=== PATIENT | female | born 1965 | race Caucasian/White ===

== ENCOUNTER → 2018-01-21 | Outpatient (CLI) | payer OTHER ==
--- NOTE | 2018-01-23 10:49 | MM ---
Reason for exam: screening (asymptomatic). Last mammogram was performed 3 years and 8 months ago. History: Patient is nulliparous. Family history of breast cancer in 2 cousins. Benign US breast aspiration ea add LT of the left breast, June 07, 2014. Benign US breast aspiration single LT of the left breast, June 07, 2014. Benign US breast aspiration single RT of the right breast, June 07, 2014. Benign US right core biopsy of the right breast, June 06, 2006. Took hormonal contraceptives for 12 years. Physical Findings: A clinical breast exam by your physician is recommended on an annual basis and results should be correlated with mammographic findings. MG 3D Screening Mammo W/Cad Bilateral CC and MLO view(s) were taken. Prior study comparison: May 31, 2014, bilateral MG diagnostic mammo w CAD SANIYA. May 20, 2006, workup right diagnostic mammogram. The breast tissue is heterogeneously dense. This may lower the sensitivity of mammography. There are three rounded circumscribed densities in the left breast, increased in size. Ultrasound recommended. This finding is changed when compared with previous exams. ASSESSMENT: Incomplete: need additional imaging evaluation, BI-RAD 0 RECOMMENDATION: Ultrasound of the left breast. [facility] will attempt to contact patient to return for ultrasound.
== END | disposition home or self-care (01) ==
LOC: RADMAMWWP 07:43
PROVIDERS: ATTEND Family Medicine
DX: Z12.31 Encounter for screening mammogram for malignant neoplasm of breast (principal)
CPT/HCPCS: 77063; 77067

== ENCOUNTER → 2018-01-27 | Outpatient (CLI) | payer OTHER ==
--- NOTE | 2018-01-27 09:03 | USB ---
Reason for exam: additional evaluation requested from abnormal screening. History: Patient is nulliparous. Family history of breast cancer in 2 cousins. Benign US breast aspiration ea add LT of the left breast, June 07, 2014. Benign US breast aspiration single LT of the left breast, June 07, 2014. Benign US breast aspiration single RT of the right breast, June 07, 2014. Benign US right core biopsy of the right breast, June 06, 2006. Took hormonal contraceptives for 12 years. Physical Findings: Nurse Summary: 3cm movable nodule in the right breast and a 3cm movable nodule in the left breast (nurse dw). US Breast Workup Limited LT Left breast ultrasound demonstrates several cystic lesions measuring 2.1 x 1.0 x 2.7cm at 12 o'clock, 0.9 x 0.8 x 1.6cm at 12 o'clock, 1.1 x 0.9 x 0.8cm at 12 o'clock and 1.8 x 1.3 x 2.0cm at 1 o'clock. Anechoic with increase through transmission. These results were verbally communicated with the patient and result sheet given to the patient on 01/27/18. ASSESSMENT: Benign, BI-RAD 2 RECOMMENDATION: Return to routine screening mammogram schedule for both breasts.
== END | disposition home or self-care (01) ==
LOC: RADUSWWP 07:45
PROVIDERS: ATTEND Family Medicine
DX: R92.8 Other abnormal and inconclusive findings on diagnostic imaging of breast (principal)

== ENCOUNTER → 2021-04-20 | Outpatient (CLI) | payer OTHER ==
--- NOTE | 2021-04-26 11:19 | MM ---
Reason for exam: screening (asymptomatic). Last mammogram was performed 3 years and 3 months ago. History: Patient is postmenopausal and is nulliparous. Family history of breast cancer in 2 cousins. Benign US breast aspiration ea add LT of the left breast, June 07, 2014. Benign US breast aspiration single LT of the left breast, June 07, 2014. Benign US breast aspiration single RT of the right breast, June 07, 2014. Benign US right core biopsy of the right breast, June 06, 2006. Took hormonal contraceptives for 12 years. Physical Findings: A clinical breast exam by your physician is recommended on an annual basis and results should be correlated with mammographic findings. MG 3D Screening Mammo W/Cad Bilateral CC and MLO view(s) were taken. XCCL view(s) were taken of the right breast. Prior study comparison: January 21, 2018, bilateral MG 3d screening mammo w/cad. May 31, 2014, bilateral MG diagnostic mammo w CAD SANIYA. There are scattered fibroglandular densities. Previous mammotome biopsy in the right breast. Most of the previous nodules have resolved. A nodule remaining in the right upper outer quadrant appears more prominent. Large region of calcifications just adjacent. Additional microcalcifications 2-3 o'clock left breast. ASSESSMENT: Incomplete: need additional imaging evaluation, BI-RAD 0 RECOMMENDATION: Special view mammogram of both breasts. If lesion persists on supplemental views, image directed ultrasound is recommended. [facility] will attempt to contact patient to return for supplemental views and ultrasound if indicated.
== END | disposition home or self-care (01) ==
LOC: RADMAMWWP 09:22
PROVIDERS: ATTEND Family Medicine
DX: Z12.31 Encounter for screening mammogram for malignant neoplasm of breast (principal); Z78.0 Asymptomatic menopausal state; Z80.3 Family history of malignant neoplasm of breast
CPT/HCPCS: 77063; 77067

== ENCOUNTER → 2021-05-02 | Outpatient (CLI) | payer OTHER ==
--- NOTE | 2021-05-02 08:48 | USB ---
EXAMINATION TYPE: US breast limited RT DATE OF EXAM: 05/02/2021 COMPARISON: 01/27/2018, 06/07/2014 CLINICAL HISTORY: R92.8 abnormal mammogram. Findings: The right breast was scanned with ultrasound from 9-12 o'clock and in the retroareolar region and axi llary tail. In the right breast at 10:00, there is a 1.4 x 1.0 x 1.0 cm irregular ovoid lesion which may represen t a complex cystic lesion and aspiration is recommended. If aspiration is unsuccessful, ultrasound-gu ided biopsy is recommended. A presumed complicated cyst in the right breast at 10:00 measures up to 0.5 x 0.4 x 0.5 cm. IMPRESSION: Ultrasound-guided aspiration is recommended for the 1.4 cm lesion in the right breast at 10:00 and if unsuccessful ultrasound-guided biopsy is recommended. Bilateral stereotactic biopsies are recommended for extensive bilateral right breast calcifications w hich are new since prior screening mammogram. BI-RADS 4, suspicious.
--- NOTE | 2021-05-02 10:41 | MM ---
Reason for exam: additional evaluation requested from abnormal screening. Last mammogram was performed less than 1 month ago. History: Patient is postmenopausal and is nulliparous. Family history of breast cancer in 2 cousins. Benign US breast aspiration ea add LT of the left breast, June 07, 2014. Benign US breast aspiration single LT of the left breast, June 07, 2014. Benign US breast aspiration single RT of the right breast, June 07, 2014. Benign US right core biopsy of the right breast, June 06, 2006. Took hormonal contraceptives for 12 years. Physical Findings: Nurse did not find any significant physical abnormalities on exam. MG 3D Work Up W/Cad SANIYA Bilateral CC and MLO view(s) were taken. Prior study comparison: April 20, 2021, bilateral MG 3d screening mammo w/cad. January 21, 2018, bilateral MG 3d screening mammo w/cad. There are scattered fibroglandular densities. There is a 6.2 x 8.1 x 7.7cm area of multiple groupings of fine heterogeneous calcifications in the upper outer right breast but also extending into lower and inner breast. The area contains a mass with biopsy clip and ultrasound is recommended. There is a 5.0 x 6.8 x 4.0cm area of multiple groupings of fine heterogeneous calcifications in the upper outer left breast but also extending into the inferior breast. These results were verbally communicated with the patient and result sheet given to the patient on 05/02/21. ASSESSMENT: Incomplete: need additional imaging evaluation, BI-RAD 0 RECOMMENDATION: Ultrasound of the right breast. (for mass) MTDD
== END ==
LOC: RADMAMWWP 07:40
PROVIDERS: ATTEND Family Medicine
DX: N64.9 Disorder of breast, unspecified (principal); R92.1 Mammographic calcification found on diagnostic imaging of breast; R92.8 Other abnormal and inconclusive findings on diagnostic imaging of breast; Z80.3 Family history of malignant neoplasm of breast
CPT/HCPCS: 77066; 76642; G0279; 77062

== ENCOUNTER → 2021-06-02 | Outpatient (CLI) | payer MEDICAID ==
[2021-06-02 07:32] VITALS: BP 126/77; PULSE 59; RESP 18; TEMP 97.8
--- NOTE | 2021-06-02 08:12 | P.GSHP ---
History of Present Illness H&P Date: 06/02/21 Chief Complaint: Bilateral mammographic abnormality Vicky is a 56-year-old white female seen in consultation for Dr. Nielsen regarding bilateral mammographic abnormality. She underwent a bilateral screening mammogram in . This led to additional views of both breasts which was performed on 04/2221. On the additional views there was noted to be a 6.2 x 8.1 cm area of multiple groupings of fine heterogeneous calcifications in the upper outer quadrant of the right breast. The area also contained a mass with the biopsy clip and ultrasound was recommended. The ultrasound of the right breast revealed a 1.4 x 1 cm irregular over the lesion which was felt to possibly represent a complex cyst and aspiration was recommended. The patient additionally in the left breast was noted to have a 5 x 6.8 cm area of fine heterogeneous calcifications in the upper outer quadrant. Stereotactic core biopsies of the area of calcifications of both breasts was recommended. The patient experienced an infection in the left breast at approximately the age of 13. The nipple has been slightly inverted on this side sent she was 13. This has not changed. The patient does not feel any lumps masses or nodules in her breasts for which she is concerned. She is not complaining of any nipple discharge or skin changes. She is not complaining of any pain in her breast. Of significance is the fact that in 2013 she underwent cyst aspiration of the left and right breast all of which were benign. She has never had any open breast biopsies. Caffiene: 1 cup/day nicotine: none; second hand smoke growing up chocolate: none Family history: father: colon and lung cancer mother: ? type of cancer cousin: 3 of 4 had breast cancer (earliest in her 20's, she ) no genetic testing maternal uncle: 2 lung cancer 3 brothers: of lung cancer all smokers Hormonal history: Menarche: 11 G0 menopause: 52 BCP: 12 years hormones: none Surgical history: Negative Medical history: High cholesterol Social history: Nicotine: Negative Alcohol: Negative Drugs: Occasional marijuana - Constitutional Constitutional: Denies chills, Denies fever - EENT Eyes: denies blurred vision, denies pain Ears: bilateral: tinnitus, deny: decreased hearing Ears, nose, mouth and throat: Denies headache, Denies sore throat - Breasts Breasts: bilateral: as per HPI - Cardiovascular Cardiovascular: Denies chest pain, Denies shortness of breath - Respiratory Respiratory: Denies cough, Denies 7 - Gastrointestinal Gastrointestinal: Denies abdominal pain, Denies diarrhea, Denies nausea, Denies vomiting - Genitourinary (Female) Genitourinary: Reports kidney stones, Denies dysuria, Denies hematuria - Menstruation Menstruation: Reports postmenopausal - Musculoskeletal Musculoskeletal: Denies myalgias - Integumentary Integumentary: Denies pruritus, Denies rash - Neurological Neurological: Denies numbness, Denies weakness - Psychiatric Psychiatric: Denies anxiety, Denies depression - Endocrine Endocrine: Denies fatigue, Denies weight change - Hematologic/Lymphatic Comment: bruise easy - Allergic/Immunologic Allergic/Immunologic: Reports seasonal allergies Past Medical History Past Medical History: Hyperlipidemia History of Any Multi-Drug Resistant Organisms: None Reported Additional Past Surgical History / Comment(s): benign breast needle bx, colonoscopy Past Anesthesia/Blood Transfusion Reactions: No Reported Reaction Past Psychological History: No Psychological Hx Reported Smoking Status: Never smoker Past Alcohol Use History: None Reported Past Drug Use History: Marijuana Medications and Allergies Home Medications Medication Instructions Recorded Confirmed Type Rosuvastatin [Crestor] 1 tab PO DAILY 05/19/21 06/02/21 History Allergies Allergy/AdvReac Type Severity Reaction Status Date / Time Penicillins Allergy Rash/Hives Verified 06/02/21 07:27 Sulfa (Sulfonamide Allergy Rash/Hives Verified 06/02/21 07:27 Antibiotics) Surgical - Exam Vital Signs Temp Pulse Resp BP Pulse Ox 97.8 F 59 L 18 126/77 99 06/02/21 07:28 06/02/21 07:28 06/02/21 07:28 06/02/21 07:28 06/02/21 07:28 BMI 26.1 - General no distress - Eyes normal ocular movement - ENT normal nares - Neck no masses, trachea midline - Respiratory normal respiratory effort, clear to auscultation - Cardiovascular Rhythm: regular Heart Sounds: normal: S1, S2 - Abdomen Abdomen: soft, non tender, no guarding, no rigid, no rebound - Integumentary normal turgor - Neurologic no disoriented, no combative - Musculoskeletal normal gait, normal posture - Psychiatric oriented to time, oriented to person, oriented to place, speech is normal, memory intact Breast Exam: Bra: 36D inspection: Bilateral grade 3 ptosis, left nipple slightly inverted of her right nipple, right breast slightly larger than left Palpation: Right breast: Multi-positional exam fibrocystic changes, no dominant masses or nodules of concern Right axilla: No adenopathy of concern Left breast: Left nipple slightly inverted, left breast slightly smaller than right breast, multi-positional exam fibrocystic changes no discrete dominant masses or nodules of concern Left axilla: No adenopathy of concern Results Mammogram reviewed with radiology Dr. Condon. Assessment and Plan Assessment: Impression: 1. Fibroid cystic breast disease 2. Bilateral mammographic and right breast ultrasound abnormality 3. Strong family history of breast cancer and cousins 4. Asymmetry of the breast with chronically inverted left nipple Plan: 1. Bilateral stereotactic core biopsies 2. Right breast ultrasound core biopsy 3. Consider genetic testing Cc: Dr. Nielsen Risks and benefits of stereotactic core biopsy and ultrasound-guided biopsy discussed with the patient. This include but are not limited to bleeding, infection, reaction to the anesthetic. Additionally the possibility that the area intended to be sampled would be missed in the lesion would be discordant is discussed which could necessitate need for open biopsy in the future. Patient understands and wishes to proceed. Alternative such as watchful waiting or open biopsy are discussed but not recommended.
== END ==
LOC: WWCWWP 07:10
PROVIDERS: ATTEND Surgery
DX: N60.11 Diffuse cystic mastopathy of right breast (principal); N64.89 Other specified disorders of breast; E78.5 Hyperlipidemia, unspecified; Z88.0 Allergy status to penicillin; Z88.2 Allergy status to sulfonamides; Z80.1 Family history of malignant neoplasm of trachea, bronchus and lung

== ENCOUNTER → 2021-06-02 | Day surgery (SDC) | payer MEDICAID, OTHER ==
[2021-06-02 07:24] VITALS: RESP 16
[2021-06-02 10:15] VITALS: BP 128/79; PULSE 54; TEMP 98.2
--- NOTE | 2021-06-02 12:18 | P.OP ---
Date of Procedure: 06/02/21 Preoperative Diagnosis: Bilateral mammographic abnormalities microcalcifications Postoperative Diagnosis: Same Procedure(s) Performed: Bilateral stereotactic core breast biopsy Anesthesia: local Surgeon: Carolyn Garcia Pathology: other (Breast tissue bilateral) Condition: stable Disposition: same day Indications for Procedure: Abnormal microcalcifications both breast Operative Findings: Fibrofatty breast tissue Description of Procedure: Vicky is a 56-year-old white female who was noted on routine screening mammography to have microcalcifications of concern in both breasts. In the right breast these were in the lower inner area. A seperate lesion seen by ultrasound was also recommended for biopsy. In the left breast in the upper outer quadrant area microcalcifications of concern were identified. The area of microcalcifications were recommended to undergo stereotactic core biopsy. Risks and benefits of the procedure were discussed with the patient. Risks include but are not limited to bleeding, infection, reaction to the anesthetic. If the lesions were felt to be discordant potential open biopsy could be recommended in the future. Alternatives such as watchful waiting or open biopsy were discussed but not recommended. The patient agreed to stereotactic core biopsy of both breasts. The patient was brought to the stereotactic core biopsy room. She was positioned on the lo rad table. A bottoming machine operator film was obtained. The right breast was approached initially. A CC from below approach was utilized. The area of concern was identified. This was targeted. The breast was prepped using Betadine. 15 mL of 1% lidocaine were used to anesthetize the area of concern. A 9-gauge vacuum-assisted core rotating biopsy needle was driven to the correct coordinates. The needle was fired. Post fire film was obtained and the needle was noted to be in the correct location. 12 core biopsy specimens were obtained. Radiograph of the specimen revealed the area of concern of been sampled with microcalcifications in the specimen. A secure marked top at clip was placed. Radiograph revealed this to be in the correct location. The patient tolerated the procedure in stable condition. The left breast was then approached. She was again positioned on the lo rad table. A bottoming machine operator film was obtained. The area of concern was identified. A CC from below approach was utilized. The lesion was felt to be in the upper outer quadrant area. The lesion was targeted. The breast was prepped using Betadine. 15 mL of 1% lidocaine were used to anesthetize the area of concern. A 9-gauge vacuum-assisted core rotating biopsy needle was driven to the correct coordinates. The needle was fired. A post fire film was obtained. The needle was noted to be in the correct location. 12 specimens were obtained. Radiograph of the specimens revealed the area of concern had been sampled. A secure marked top hat clip was left. Radiograph revealed this to be in the correct location. The patient tolerated the procedure in stable condition. The patient will follow with Dr. Sagastume next week. The specimens were sent for pathology.
--- NOTE | 2021-06-02 13:18 | MM ---
EXAMINATION TYPE: MG stereo VAD BX LT, MG stereo VAD BX RT DATE OF EXAM: 06/02/2021 COMPARISON: 05/31/2021 CLINICAL HISTORY: Bilateral breast calcifications TECHNIQUE: Stereotactic guided core biopsy of bilateral breast. FINDINGS: The procedure of stereotactic guided core biopsy was explained to the patient. Benefits, alternatives, and risks were discussed. An informed consent was then obtained. RIGHT: The shortness pathway for biopsy was chosen. Shortness pathway was below approach. I performed the localization, then surgeon, Dr. Garcia performed the remainder of the procedure. A vacuum assisted biopsy gun was used to obtain multiple core samples. LEFT: The shortness pathway for biopsy was chosen. Shortness pathway was below approach. I performed the localization, then surgeon, Dr. Garcia performed the remainder of the procedure. A vacuum assisted biopsy gun was used to obtain multiple core samples. The patient tolerated the procedure well without any immediate complication. The patient was kept in the radiology department for short stay after the procedure and then discharged home in stable condition. Targeted calcifications are identified in specimen mammogram. Post biopsy mammogram shows the clip to appear in satisfactory position relative to the targeted area of concern on the preprocedure images. IMPRESSION: SUCCESSFUL, UNCOMPLICATED STEREOTACTIC GUIDED CORE BIOPSY OF AREA OF CONCERN IN THE BILATERAL BREASTS, FULL PATHOLOGY RESULTS TO FOLLOW. Pathology Results: Benign A. RIGHT BREAST, STEREOTACTIC CORE BIOPSY: Sclerosing adenosis with calcifications in a background of fibrocystic changes. B. LEFT BREAST, STEREOTACTIC CORE BIOPSY: Sclerosing adenosis with calcifications in a background of fibrocystic changes including focal fibroadenomatoid hyperplasia. Recommendation Follow up mammogram of bilateral breasts in 6 months. AGUSTIN
== END ==
LOC: RADMAMWWP 07:07
PROVIDERS: ATTEND Surgery
DX: N60.12 Diffuse cystic mastopathy of left breast (principal); N60.11 Diffuse cystic mastopathy of right breast; R92.1 Mammographic calcification found on diagnostic imaging of breast
CPT/HCPCS: 19081 ×2; 88305; A4648; J2001

== ENCOUNTER → 2021-06-08 | Day surgery (SDC) | payer MEDICAID, OTHER ==
[2021-06-08 09:50] VITALS: RESP 16
[2021-06-08 11:40] VITALS: BP 132/80; PULSE 65; TEMP 98.6
--- NOTE | 2021-06-08 11:50 | USB ---
EXAMINATION TYPE: US biopsy breast VAD RT, MG post biopsy diagnostic mammo RT wo CAD DATE OF EXAM: 06/08/2021 CLINICAL HISTORY: 56-year-old female R92.8 Abnormal right Mammogram. TECHNIQUE: Ultrasound guided core biopsy of the 10:00 right breast. COMPARISON: 06/02/2021, 05/02/2021, 04/20/2021, 01/21/2018 FINDINGS: The procedure of ultrasound guided core biopsy was explained to the patient. Benefits, alternatives, and risks were discussed. An informed consent was then obtained. The patient's round, circumscribed hypoechoic 1.2 cm mass at the 10:00 position is identified and targeted for biopsy. This could represent a cyst containing thick and internal material or a mass. The former is somewhat favored given the large cyst in this location on the patient's 2018 exam. The patient was placed in supine positioning for imaging and for the procedure. The overlying skin was prepped and draped in usual sterile fashion. Lidocaine was used as anesthetic into the skin followed by lidocaine/epinephrine into the subcutaneous tissue up to area of concern in the right breast. Under ultrasound guidance, a 13-gauge vacuum-assisted mammotome biopsy gun was used to obtain 10 core samples. Nearly the entire lesion was removed with the multiple samples. Following this, a coil clip was left at the site of biopsy. The patient tolerated the procedure well without any immediate complication. The patient was kept in the radiology department for short stay after the procedure and then discharged home in stable condition. Postprocedure mammogram shows resolution of the upper outer quadrant mass and coil clip in this location. Adjacent ribbon clip from old biopsy. IMPRESSION: Successful, uncomplicated ultrasound guided core biopsy of either a highly thickened complicated cyst versus mass in the 10:00 position right breast. The former is favored. Full pathology results to follow. RECOMMENDATION: 1. Await pathology results for the patient's bilateral stereotactic core needle biopsies performed on 06/02/2021. 2. Await biopsy results for this 10:00 ultrasound-guided right breast biopsy. 3. If benign results, postprocedure follow-up diagnostic bilateral mammograms in 6 months will be recommended. Pathology Results: Benign RIGHT BREAST, TEN O'CLOCK, CORE BIOPSY: Stromal fibrosis and focal fibroadenomatoid stromal hyperplasia with sclerosing adenosis, microcalcification, fibrocystic change with columnar cell change and fibrotic areas with chronic inflammation and histiocytic foreign body type inflammatory reaction with cholesterol clefts. Inflammatory and calcified non-specific debris fragments possibly representing cyst contents present. See note. Recommendation Bilateral 6 month post procedure follow up mammogram. AGUSTIN
== END ==
LOC: RADUSWWP 09:40
PROVIDERS: ATTEND Surgery
DX: N60.31 Fibrosclerosis of right breast (principal); N62 Hypertrophy of breast; R92.8 Other abnormal and inconclusive findings on diagnostic imaging of breast; R92.0 Mammographic microcalcification found on diagnostic imaging of breast; N60.11 Diffuse cystic mastopathy of right breast
CPT/HCPCS: 88305; 77065; 19083; A4648; J2001

== ENCOUNTER → 2021-06-15 | Outpatient (CLI) | payer MEDICAID ==
[2021-06-15 14:13] VITALS: BP 118/78; PULSE 74; RESP 16; TEMP 97.8
--- NOTE | 2021-06-15 14:25 | P.PN ---
Subjective Progress Note Date: 06/15/21 Principal diagnosis: Status post the core breast biopsies/2 on the right and one on the left Vicky is a 56-year-old white female who underwent stereotactic core biopsy of bilateral breast as well as an ultrasound core biopsy of the right breast. Stereotactic core biopsies were performed and [id number]. The right breast revealed sclerosing adenosis with calcifications, the left breast revealed sclerosing adenosis with calcifications. The patient then on 06/08/2021 underwent a right breast ultrasound core biopsy findings consistent with fibrocystic change. She developed bruising on the left side which has improved. Objective - Vital Signs Vital signs: Vital Signs Temp 97.8 F 06/15/21 14:09 Pulse 74 06/15/21 14:09 Resp 16 06/15/21 14:09 BP 118/78 06/15/21 14:09 Pulse Ox 98 06/15/21 14:09 Intake & Output 06/14/21 06/15/21 06/15/21 18:59 06:59 18:59 Weight 69.4 kg - Constitutional General appearance: Present: cooperative - EENT Eyes: Present: EOMI ENT: Present: hearing grossly normal - Neck Neck: Present: normal ROM - Respiratory Respiratory: bilateral: CTA - Cardiovascular Heart sounds: normal: S1, S2 - Integumentary Integumentary Comment(s): echymosis left breast, no evidence of infection Small amount of ecchymosis right breast no evidence of infection Assessment and Plan Assessment: Impression: 1. Patient status post core biopsy of bilateral breast with 2 areas in the right breast. All biopsies benign Plan: 1. Bilateral mammogram in 6 months with physician exam at that time. CC: Dr. Bartholomew
== END ==
LOC: WWCWWP 13:59
PROVIDERS: ATTEND Surgery
DX: Z08 Encounter for follow-up examination after completed treatment for malignant neoplasm (principal); Z98.890 Other specified postprocedural states

== ENCOUNTER → 2021-12-11 | Outpatient (CLI) | payer OTHER ==
--- NOTE | 2021-12-11 12:20 | MM ---
Reason for exam: history of benign breast biopsy. Last mammogram was performed 6 months ago. History: Patient is postmenopausal and is nulliparous. Family history of breast cancer in 2 cousins. Benign US biopsy breast VAD RT of the right breast, June 08, 2021. Benign MG stereo VAD BX LT of the left breast, June 02, 2021. Benign MG stereo VAD BX RT of the right breast, June 02, 2021. Benign US breast aspiration ea add LT of the left breast, June 07, 2014. Benign US breast aspiration single LT of the left breast, June 07, 2014. Benign US breast aspiration single RT of the right breast, June 07, 2014. Benign US right core biopsy of the right breast, June 06, 2006. Took hormonal contraceptives for 12 years. Physical Findings: Nurse did not find any significant physical abnormalities on exam. MG 3D Diag Mammo W/Cad SANIYA Bilateral CC and MLO view(s) were taken. Prior study comparison: June 08, 2021, right breast MG diagnostic mammo RT wo CAD. May 02, 2021, bilateral MG 3d work up w/cad SANIYA. January 21, 2018, bilateral MG 3d screening mammo w/cad. The breast tissue is heterogeneously dense. This may lower the sensitivity of mammography. Previous mammotome biopsy in the right breast x 3 and in the left breast. Increasing bilateral regional and grouped calcifications, new from 2018. These are amorphous and appear similar to those samples from each side on 06/02/21. 6 month follow up recommended. These results were verbally communicated with the patient and result sheet given to the patient on 12/11/21. ASSESSMENT: Probably benign, BI-RAD 3 RECOMMENDATION: Follow-up diagnostic mammogram of both breasts in 6 months.
== END | disposition home or self-care (01) ==
LOC: RADMAMWWP 11:10
PROVIDERS: ATTEND Surgery
DX: R92.8 Other abnormal and inconclusive findings on diagnostic imaging of breast (principal); Z78.0 Asymptomatic menopausal state; Z80.3 Family history of malignant neoplasm of breast
CPT/HCPCS: 77062; 77066

== ENCOUNTER → 2022-06-20 | Outpatient (CLI) | payer OTHER ==
--- NOTE | 2022-06-20 11:45 | MM ---
Reason for Exam: Follow-up at short interval from prior study. Last screening mammogram was performed 7 month(s) ago. Patient History: Menarche at age 15. Patient has no children. Postmenopausal. Patient used Hormonal Contraceptives for 12 years. 06/08/2021, Benign Core Biopsy on the right side. 06/02/2021, Benign Core Biopsy on the right side. 06/02/2021, Benign Core Biopsy on the left side. 06/07/2014, Benign Cyst Aspiration on the left side. 06/07/2014, Benign Cyst Aspiration on the left side. 06/07/2014, Benign Cyst Aspiration on the right side. 06/06/2006, Benign Core Biopsy on the right side. Maternal cousin had breast cancer. Maternal cousin had breast cancer. Risk Values: Chapis 5 year model risk: 2.0%. NCI Lifetime model risk: 11.5%. Prior Study Comparison: 05/31/2014 Bilateral Diagnostic Mammogram, [facility]. 05/31/2014 Bilateral Diagnostic Ultrasound, [facility]. 01/21/2018 Bilateral Screening Mammogram, [facility]. 01/27/2018 Left Diagnostic Ultrasound, [facility]. 04/20/2021 Bilateral Screening Mammogram, [facility]. 05/02/2021 Bilateral Diagnostic Mammogram, [facility]. 05/02/2021 Right Diagnostic Ultrasound, [facility]. 06/08/2021 Right Diagnostic Mammogram, [facility]. 12/11/2021 Bilateral Diagnostic Mammogram, [facility]. Tissue Density: The breast tissue is heterogeneously dense. This may lower the sensitivity of mammography. Findings: Analyzed By CAD. Multiple scattered calcifications are present bilaterally. Calcifications within the right breast are stable. 2 core markers are within the upper outer quadrant right breast. A core marker is within the left breast. Overall Assessment: Probably benign, BI-RAD 3 Management: Diagnostic Mammogram of both breasts in 5 months. A clinical breast exam by your physician is recommended on an annual basis and results should be correlated with mammographic findings. This exam should not preclude additional follow-up of suspicious palpable abnormalities. Results were given to the patient verbally at the time of exam. Electronically signed and approved by: Filiberto Donovan D.O. Radiologis
== END | disposition home or self-care (01) ==
LOC: RADMAMWWP 10:53
PROVIDERS: ATTEND Family Medicine
DX: R92.8 Other abnormal and inconclusive findings on diagnostic imaging of breast (principal); Z78.0 Asymptomatic menopausal state
CPT/HCPCS: 77062; 77066

== ENCOUNTER 2023-09-10 08:10 | Day surgery (SDC) | payer OTHER ==
[2023-09-09 10:59] VITALS: BMI 20.7
[2023-09-10] MEDS ORDERED: LACTATED RINGERS 1,000 ML IV SCH (08:36)
[2023-09-10] MEDS ORDERED: LIDOCAINE 1% (10MG/ML) FOR IV START INTRADERMA PRN (08:36)
[2023-09-10 08:49] VITALS: RESP 16; TEMP 97.9
[2023-09-10] MEDS ORDERED: PROPOFOL 10 MG/ML 20 ML VIAL IV ONE (09:18)
--- NOTE | 2023-09-10 09:33 | P.PCN ---
Date of Procedure: 09/10/23 Procedure(s) Performed: BRIEF HISTORY: Patient is a 58-year-old pleasant white female scheduled for an elective colonoscopy as a part of screening for colon cancer. PROCEDURE PERFORMED: Colonoscopy. PREOPERATIVE DIAGNOSIS: Screening for colon cancer. IV sedation per Anesthesia. PROCEDURE: After informed consent was obtained, the patient, was brought into the endoscopy unit. IV sedation was administered by Anesthesia under continuous monitoring. Digital rectal examination was normal. Initially the Olympus CF-160 flexible video colonoscope was then inserted in the rectum, gradually advanced into the cecum without any difficulty. Careful examination was performed as the scope was gradually being withdrawn. Ileocecal valve and the appendiceal orifice were visualized and appeared normal. Prep was excellent. Mucosa of the cecum, ascending colon, transverse colon, descending colon, sigmoid colon, and rectum appeared normal. Retroflexion was performed in the rectum and no lesions were seen. The patient tolerated the procedure well. IMPRESSION: Normal-appearing colon from rectum to cecum with no evidence of colorectal neoplasia . RECOMMENDATIONS: Findings of this examination were discussed with the patient is a family. She was advised to have a repeat screening colonoscopy in 10 yea rs..
[2023-09-10 09:58] VITALS: BP 95/59; PULSE 59
== END 2023-09-10 10:25 | disposition home or self-care (01) ==
LOC: ORWHC2ENDO 08:10
PROVIDERS: ATTEND Internal Medicine Gastroenterology
DX: Z12.11 Encounter for screening for malignant neoplasm of colon (principal); E78.5 Hyperlipidemia, unspecified; F17.200 Nicotine dependence, unspecified, uncomplicated; Z88.0 Allergy status to penicillin; Z88.2 Allergy status to sulfonamides; Z79.899 Other long term (current) drug therapy
CPT/HCPCS: 45378; J2704